=== PATIENT | male | born 1995 | race Caucasian/White ===

== ENCOUNTER 2017-11-28 17:03 | Emergency (ER) | payer OTHER ==
[2017-11-28] MEDS: DEXAMETHASONE 10 MG/ML 1 ML INJ IM (17:37)
[2017-11-28] MEDS: IPRATROPIUM (NEB) 0.5 MG/2.5 ML AMP INH (17:41)
[2017-11-28] MEDS: ALBUTEROL 0.5% (NEB) 2.5 MG/0.5 ML AMP INH (17:42)
[2017-11-28] MEDS: ALBUTEROL 0.5% (NEB) 2.5 MG/0.5 ML AMP NEB (18:33)
== END 2017-11-28 19:15 | disposition home or self-care (01) ==
LOC: FTE 17:03
DX: J45.901 Unspecified asthma with (acute) exacerbation (principal)
CPT/HCPCS: 71045; 94644; 94664; 96372; 99285-25

== ENCOUNTER 2019-02-07 19:37 | Emergency (ER) | payer OTHER ==
[2019-02-07] MEDS: ACETAMINOPHEN 325 MG TAB PO (20:28)
[2019-02-07] MEDS: IBUPROFEN 600 MG TAB PO (20:28)
== END 2019-02-07 21:12 | disposition home or self-care (01) ==
LOC: FTE 19:37
DX: J45.901 Unspecified asthma with (acute) exacerbation (principal); J06.9 Acute upper respiratory infection, unspecified
CPT/HCPCS: 99283; Z7502

== ENCOUNTER 2019-04-03 15:32 | Emergency (ER) | payer OTHER ==
[2019-04-03] MEDS ORDERED: DEXAMETHASONE 10 MG/ML 1 ML INJ IV (16:43)
[2019-04-03] MEDS: predniSONE 20 MG TAB PO (17:33)
[2019-04-03] MEDS: ACETAMINOPHEN 325 MG TAB PO (17:33)
[2019-04-03] MEDS: IPRATROPIUM (NEB) 0.5 MG/2.5 ML AMP NEB (17:43)
[2019-04-03] MEDS: ALBUTEROL 0.083% (NEB) 2.5 MG/3 ML AMP NEB (17:43)
== END 2019-04-03 18:47 | disposition home or self-care (01) ==
LOC: FTE 15:32
DX: J45.901 Unspecified asthma with (acute) exacerbation (principal)
CPT/HCPCS: 71045; 94664; 99283-25